=== PATIENT | male | born 1990 | race Caucasian/White ===

== ENCOUNTER → 2022-07-12 10:29 | Outpatient (CLI) | payer OTHER, SELFPAY ==
--- NOTE | ~2022-07-12 | XR_ITS ---
Right elbow Technique: AP, oblique, and lateral views were obtained. Clinical History: Foreign body, broken needle Findings: No acute fracture or dislocation is seen. Osseous alignment is anatomic. Joint spaces are p reserved. There is no displacement of the fat pads, and no evidence of joint effusion. There is a 3 m m linear foreign body at the antecubital fossa region seen on lateral view. Impression: 3 mm linear foreign body in the antecubital fossa region seen on lateral view, just anterior to the d istal humerus. Reviewed, dictated and finalized at location M. Impression: 3 mm linear foreign body in the antecubital fossa region seen on lateral view, just anterior to the distal humerus.
--- NOTE | ~2022-07-12 | XR_ITS ---
Right Forearm AP and lateral views of the right forearm were performed. Clinical History: Foreign body, broken needle Findings: No fracture or dislocation is seen. Osseous alignment in anatomic. Joint spaces are prese rved. Tiny radiodense foreign body noted at the antecubital fossa region on lateral view.. Impression: Tiny radiodense foreign body in the antecubital fossa region anteriorly on lateral view. Reviewed, dictated and finalized at location . Impression: Tiny radiodense foreign body in the antecubital fossa region anteriorly on late ral view.
== END ==
DX: S50.351A Superficial foreign body of right elbow, initial encounter (principal); T14.90XA Injury, unspecified, initial encounter
CPT/HCPCS: 73070; 73090